=== PATIENT | female | born 1950 | race Caucasian/White ===

== ENCOUNTER → 2020-10-07 | Day surgery (SDC) | payer MEDICARE, OTHER ==
[~2020-10-07] MED LIST: ALENDRONATE SOD70 MG PO; ASPIRIN EC81 MG PO; ATORVASTATIN CA20 MG PO; DICLOFENAC SODI75 MG PO; ELAVIL25 MG PO; ESTRACE1 MG PO; FEOSOL325 MG PO; HCTZ12.5 MG PO; LEVOXYL25 MCG PO; MONTELUKAST SOD10 MG PO; TOPROL XL 25MG25 MG PO
== END | disposition home or self-care (01) ==
LOC: FAS 06:35
DX: Z12.11 Encounter for screening for malignant neoplasm of colon (principal); D12.8 Benign neoplasm of rectum; K57.30 Diverticulosis of large intestine without perforation or abscess without bleeding; I10 Essential (primary) hypertension; K21.9 Gastro-esophageal reflux disease without esophagitis; E03.9 Hypothyroidism, unspecified; M19.90 Unspecified osteoarthritis, unspecified site; E78.5 Hyperlipidemia, unspecified; M81.0 Age-related osteoporosis without current pathological fracture; E55.9 Vitamin D deficiency, unspecified; Z79.82 Long term (current) use of aspirin; Z79.83 Long term (current) use of bisphosphonates; Z79.899 Other long term (current) drug therapy; Z88.0 Allergy status to penicillin; Z88.1 Allergy status to other antibiotic agents; Z88.8 Allergy status to other drugs, medicaments and biological substances; Z91.013 Allergy to seafood; Z91.040 Latex allergy status; Z98.84 Bariatric surgery status
CPT/HCPCS: 88305; J2704; J7120

== ENCOUNTER 2021-10-03 10:11 | Emergency (ER) | payer MEDICARE, OTHER ==
[2021-10-03 10:55] LABS: BASOPHIL 0.2 % (0-2); EOSINOPHIL 0.2 % (0-7); HGB 15.1 g/dl (12.5-16.0); MCH 32.6 pg (25.0-31.0); MCHC 32.8 g/dL (32.0-36.0); MCV 99.4 fL (78.0-100.0); MPV 10.6 fL (6.0-9.5); NRBC 0; PLT 157 K/uL (150-400); RBC 4.63 M/uL (4.20-5.40); RDW 12.7 % (11.5-14.0)
[2021-10-03 11:13] LABS: ALBUMIN 2.8 g/dL (3.4-5.0); BILIRUBIN - TOTAL 0.5 mg/dL (0.2-1.0); BUN/CREAT RATIO (CALC) 20.5 RATIO; CREATININE 0.88 mg/dL (0.51-0.95); GLOBULIN (CALCULATION) 3.8 g/dL; POTASSIUM 3.1 mmol/L (3.5-5.1); TOTAL PROTEIN 6.6 g/dL (6.4-8.2)
[2021-10-03] MEDS ORDERED: ZOFRAN4 M1 PO (12:17)
== END 2021-10-03 13:15 | disposition home or self-care (01) ==
LOC: FER 10:11
PROVIDERS: Emergency Medicine
DX: U07.1 COVID-19 (principal); I10 Essential (primary) hypertension; Z23 Encounter for immunization; Z88.0 Allergy status to penicillin; Z88.1 Allergy status to other antibiotic agents; Z88.8 Allergy status to other drugs, medicaments and biological substances
CPT/HCPCS: 36415; 71045; 80053; 84484; 85025; 85379; 93005; J1885; J2405; J7030; M0245; Q0245; U0002